=== PATIENT | male | born 1985 | race Caucasian/White ===

== ENCOUNTER 2019-08-19 18:38 | Emergency (ER) | payer MEDICAID, OTHER ==
[~2019-08-19] VITALS: Ht 167.6 cm; Wt 68.0 kg
[2019-08-19 18:44] VITALS: BP 125/73
[2019-08-19] MEDS ORDERED: CLIN-97 PO (18:53)
== END 2019-08-19 18:59 | disposition home or self-care (01) ==
LOC: ER 18:39
DX: K08.89 Other specified disorders of teeth and supporting structures (principal); M54.2 Cervicalgia; Z88.8 Allergy status to other drugs, medicaments and biological substances; Z79.899 Other long term (current) drug therapy
CPT/HCPCS: 99283

== ENCOUNTER 2023-11-01 07:58 | Emergency (ER) | payer MEDICAID, OTHER ==
[~2023-11-01] VITALS: Ht 167.6 cm; Wt 66.9 kg
[~2023-11-01 07:58] MED LIST: CLIN-97 PO
[2023-11-01 08:08] VITALS: TEMP 92.9
[2023-11-01] MEDS ORDERED: ketorolac trometh. 30mg/ml inj. IV ONE (08:20)
[2023-11-01] MEDS: ondansetron/PF 4mg/2ml inj IV ONE (08:42)
[2023-11-01] MEDS: ketorolac tromethamine 15mg/ml inj. IV ONE (08:47)
[2023-11-01] MEDS: normal saline 1000ML IV soln IVB ONE ×2 (08:48→11:32)
[2023-11-01 09:06] LABS: BASOPHILS % (AUTO) 0.3 % (0-1); EOSINOPHILS # (AUTO) 0.1 X10'3 (0-0.9); EOSINOPHILS % (AUTO) 0.6 % (0-6); HEMATOCRIT 41.8 % (42.0-52.0); HEMOGLOBIN 13.9 g/dl (14.0-17.9); LYMPHOCYTES # (AUTO) 1.5 X10'3 (1.1-4.8); LYMPHOCYTES % (AUTO) 12.2 % (21-51); MEAN CORPUSCULAR HEMOGLOBIN 30.2 PG (27.0-31.0); MEAN CORPUSCULAR HGB CONC 33.1 g/dL (33.0-36.5); MEAN CORPUSCULAR VOLUME 91.1 FL (78-98); MONOCYTES # (AUTO) 0.4 X10'3 (0-0.9); MONOCYTES % (AUTO) 3.2 % (2-12); NEUTROPHILS # (AUTO) 10.2 X10'3 (1.8-7.7); NEUTROPHILS % (AUTO) 83.7 % (42-75); PLATELET COUNT 271 X10'3 (140-440); RED BLOOD COUNT 4.59 X10'6 (4.70-6.10); RED CELL DISTRIBUTION WIDTH 13.3 % (11.5-14.5); WHITE BLOOD COUNT 12.2 X10'3 (4.5-11.0)
[2023-11-01 09:06] LABS: BILIRUBIN,URINE NEGATIVE (Neg); CLARITY,URINE SLIGHTLY CLOUDY (Clear); COLOR,URINE YELLOW (Yellow); GLUCOSE, URINE 100 mg/dl (Neg); KETONES,URINE TRACE mg/dl (Neg); LEUKOCYTE ESTERASE ,URINE NEGATIVE (Neg); NITRITES, URINE NEGATIVE (Neg); OCCULT BLOOD,URINE LARGE (Neg); PH,URINE >=9.0 (4.8-8.0); PROTEIN,URINE 100 mg/dl (Neg); UROBILINOGEN,URINE 0.2 E.U/dL (0.2-1.0)
[2023-11-01 09:07] LABS: UA COLLECTION TYPE NON-SPECIFIED
[2023-11-01 09:16] LABS: MUCUS STRANDS FEW /LPF (Neg); SQUAMOUS EPITHELIAL CELL,UR FEW /LPF (FEW)
[2023-11-01 09:17] LABS: RBC,URINE 50-100 /HPF (0-2); WBC,URINE 0-4 /HPF (0-4)
[2023-11-01 09:19] LABS: BACTERIA,URINE FEW /HPF (Neg)
[2023-11-01 09:24] LABS: ALANINE AMINOTRANSFERASE 29 U/L (12-78); ALBUMIN 4.2 G/DL (3.4-5.0); ALBUMIN/GLOBULIN RATIO 1.2 (1.1-1.5); ALKALINE PHOSPHATASE 45 IU/L (46-116); ANION GAP 13 (8-16); ASPARTATE AMINO TRANSFERASE 17 U/L (10-37); BILIRUBIN,TOTAL 0.5 MG/DL (0.1-1.0); BLOOD UREA NITROGEN 19 MG/DL (7-18); CALCIUM 9.7 MG/DL (8.5-10.1); CHLORIDE 104 MMOL/L (99-107); CREATININE 1.46 MG/DL (0.60-1.10); GLUCOSE 173 MG/DL (70-104); LIPASE 98 U/L (16-77); POTASSIUM 3.5 MMOL/L (3.5-5.1); SODIUM 143 MMOL/L (135-145); TOTAL CARBON DIOXIDE 26.2 MMOL/L (24-32); TOTAL PROTEIN 7.7 G/DL (6.4-8.2); eCRCL 62 ML/MIN; eGFR 54 ML/MIN
[2023-11-01] MEDS ORDERED: FLO0.4C PO (10:15)
[2023-11-01] MEDS ORDERED: ONDA-243 PO (10:15)
[2023-11-01] MEDS ORDERED: OXYC-138 PO (10:15)
[2023-11-01] MEDS: metoclopramide 5 mg/ml inj IV ONE (11:19)
[2023-11-01] MEDS: diphenhydrAMINE 50 mg/ml inj IV ONE (11:19)
[2023-11-01 12:17] VITALS: BP 129/67; PULSE 84; RESP 15; O2SAT 99
== END 2023-11-01 12:19 | disposition home or self-care (01) ==
LOC: ER 07:58
DX: N23 Unspecified renal colic (principal); Z88.8 Allergy status to other drugs, medicaments and biological substances; Z79.2 Long term (current) use of antibiotics; Z79.899 Other long term (current) drug therapy
CPT/HCPCS: 36415; 74176; 80053; 81001; 83690; 84145; 85025; 96361; 96374; 96375; 99285; J1200; J1885; J2405; J2765; J7030